=== PATIENT | female | born 1985 | race Caucasian/White ===

== ENCOUNTER 2019-02-05 05:46 | Observation (INO) ==
--- NOTE | 2019-01-28 13:32 | PAT Medication Instructions ---
Medication Instructions Date of Service January 28, 2019 Home Medications Gabapentin 1 dose PO ibuprofen 600 mg PO UD PRN meloxicam [Mobic] 7.5 mg PO DAILY Continue as directed Gabapentin 1 dose PO ASK your surgeon for instructions ibuprofen 600 mg PO UD PRN meloxicam [Mobic] 7.5 mg PO DAILY Other Notes If you have any questions please call us at [phone] or [phone] or [phone] or [phone]
--- NOTE | 2019-01-29 08:41 | Anesthesiology Consultation ---
Date of Service January 29, 2019 Assessment & Plan (1) Encounter for pre-operative examination: - Check test AM DOS Chart Review Chart Review: Acceptable Risk for Surgery and Patient seen in Pre Admission Te sting Teaching & Discussion Pre-Anesthesia Teaching/Discussion Notes: Instructed NPO after midnight before surgery,except medications with 15 cc of water. Medication instructions provided according to the PAT guidelines. History Surgery Operation Date: 02/05/19 13:45 Proposed Procedures p C5-C6 Anterior Cervical Discectomy and Fusion - Hamilton Fairchild DO Height/Weight Height: 5 ft 1 in Weight: 94.8 kg Allergies Allergy/AdvReac Type Severity Reaction Status Date / Time Penicillins Allergy Unknown HIVES AND Verified 01/28/19 10:22 SWELLING morphine AdvReac Unknown N/V Verified 01/28/19 10:23 Medications Home Medications Medication Instructions Recorded Confirmed Last Taken Gabapentin 1 dose PO 01/28/19 Unknown ibuprofen 600 mg PO UD PRN 01/28/19 01/28/19 01/26/19 meloxicam [Mobic] 7.5 mg PO DAILY 01/28/19 01/28/19 01/26/19 Past Medical History Medical History Cervicalgia RUE RADICULOPATHY Obesity Past Family History Family History Uncle Family history of colon cancer Past Surgical History Surgical History History of cholecystectomy History of wisdom tooth extraction Past Anesthesia History No Hx of Anesthesia Complications (EXCEPT PONV) and No Family Hx of Anesthesia Complications History of PONV Yes Motion Sickness Screening History of Motion Sickness: No STOP BANG Total 0 Social History Smoking Status: Never smoker Do You Dip or Chew Tobacco: No Hx Alcohol Use: No Hx Substance Use: No substance use type: does not use Exercise / Class Metabolic Activity II 4-5 Yardwork/Stairs/Walk up hill Review of Systems Patient denies chest pain, shortness of breath, dyspnea on exertion, cough, wheezing, palpitations. Physical Exam Vital Signs VITALS BP 137/86 P 77 TEMP 98.7 SP02 99%RA RESP 18 Patient advised to followup with PCP regarding elevated BP. PHYSICAL Mildly decreased cervical extension 2/2 cervicalgia Full TMJ range of motion. TMD 3 finger breaths Mallampati Score 1 Dentition: full dentures Lungs: clear throughout to auscultation Cardiac: regular rate and rhythm, no murmurs noted Spine: normal Carotid arteries: negative bruit Extremities: no edema Testing Electrocardiogram Date: 01/29/19 Findings: + NSR @ (83) Chest X-Ray Date: 01/29/19 Findings: + NAD Laboratory Results 01/29/19 08:50 01/29/19 08:50 Blood Type A Negative 01/29/19 08:50 Antibody Screen NEGATIVE 01/29/19 08:50 PT 9.7 Seconds (9.0-12.0) 01/29/19 08:50 INR 0.9 (0.9-1.1) 01/29/19 08:50 APTT 27.9 Seconds (21.0-31.0) 01/29/19 08:50 Urine Color Yellow 01/29/19 08:50 Urine Appearance Clear (Clear) 01/29/19 08:50 Urine pH 5.0 (4.5-7.5) 01/29/19 08:50 Ur Specific [place] 1.013 (1.000-1.030) 01/29/19 08:50 Urine Protein Negative (Negative) 01/29/19 08:50 Urine Glucose (UA) Negative (Negative) 01/29/19 08:50 Urine Ketones Negative (Negative) 01/29/19 08:50 Urine Nitrite Negative (Negative) 01/29/19 08:50 Ur Leukocyte Esterase Negative (Negative) 01/29/19 08:50
--- NOTE | 2019-01-29 09:13 | XRay Report ---
XR chest Pre-admission PA/Lat CLINICAL HISTORY: pat preoperative evaluation COMPARISON STUDY: No previous studies for comparison. FINDINGS: The bones soft tissues and hemidiaphragms are normal. The cardiomediastinal silhouette is n ormal. The lungs are clear. The pulmonary vasculature is normal. IMPRESSION: Negative chest. The above report was generated using voice recognition software. It may contain grammatical, syntax or spelling errors. Electronically signed by: Jose C Watters M.D. 01/29/2019 9:11 AM
[2019-01-29 10:50] LABS: Basophils # (auto) 0.03 K/uL (0-0.2); Basophils % (auto) 0.4 %; Eosinophils # (auto) 0.18 K/uL (0-0.5); Eosinophils % (auto) 2.3 %; Hematocrit (blood only) 38.2 % (37-47); Hemoglobin 12.8 g/dL (12.0-16.0); Immature Granulocytes # (auto) 0.01 K/uL (0.00-0.02); Immature Granulocytes % (auto) 0.1 %; Lymphocytes # (auto) 1.85 K/uL (1.2-3.4); Lymphocytes % (auto) 23.7 %; Mean Corpuscular Hgb Conc 33.5 g/dL (32-36); Mean Corpuscular Volume 84.3 fL (80-100); Mean Platelet Volume 10.9 fL (7.4-10.4); Monocytes # (auto) 0.52 K/uL (0.11-0.59); Monocytes % (auto) 6.6 %; Neutrophils # (auto) 5.23 K/uL (1.4-6.5); Neutrophils % (auto) 66.9 %; Platelet Count 295 K/uL (130-400); RDW Coefficient of Variation 13.2 % (11.5-14.5); RDW Standard Deviation 40.2 fL (36.4-46.3); Red Blood Count 4.53 M/uL (4.2-5.4); White Blood Count 7.82 K/uL (4.8-10.8)
[2019-01-29 10:53] LABS: Appearance Urine Clear (Clear); Bilirubin Urine Negative (Negative); Blood Urine Negative (Negative); Color Urine Yellow; Glucose Urine UA Negative (Negative); Ketones Urine Negative (Negative); Leukocyte Esterase Urine Negative (Negative); Nitrite Urine Negative (Negative); Protein Urine Negative (Negative); Specific Gravity Urine 1.013 (1.000-1.030); Urobilinogen Urine Negative (Negative)
[2019-01-29 11:00] LABS: BUN Creatinine Ratio 14.8 (10-20); Calcium 9.3 mg/dl (8.5-10.1); Creatinine Clr Calc Pharmacy 100.7 ml/min; Est GFR (African American) 107.5; Est GFR (Non-African American) 92.7; Potassium 4.3 mmol/L (3.5-5.1)
[2019-01-29 11:01] LABS: INR 0.9 (0.9-1.1); Partial Thromboplastin Time 27.9 Seconds (21.0-31.0); Prothrombin Time 9.7 Seconds (9.0-12.0)
[2019-02-05] MEDS ORDERED: LR 15ML/HR IV SCH (06:00)
[2019-02-05] MEDS ORDERED: CLINDAMYCIN 600 MG/54 ML BAG IV SCH (06:00)
[2019-02-05] MEDS ORDERED: GABAPENTIN 300 MG x 3 PO SCH (06:00)
[2019-02-05] MEDS ORDERED: CeleBREX 200 MG CAP PO SCH (06:00)
[2019-02-05] MEDS ORDERED: ACETAMINOPHEN 500 MG TAB PO SCH (06:00)
[2019-02-05] MEDS ORDERED: MIDAZOLAM HCL 1 MG/ML 2ML VIAL ONE (06:30)
[2019-02-05] MEDS ORDERED: fentaNYL citrate 100 MCG/2 ML VIAL ONE ×3 (06:30→08:39)
[2019-02-05] MEDS ORDERED: BACITRACIN INJ 50,000 UNIT VIAL ONE (06:53)
[2019-02-05] MEDS ORDERED: SCOPOLAMINE 1.5 MG TDSY ONE ×2 (07:23→09:46)
--- NOTE | 2019-02-05 07:32 | History & Physical Bridge Note ---
Date of Service February 05, 2019 History & Physical Bridge Note I have examined the patient, reviewed the History & Physical and in the interval since the performance of the History & Physical I have noted the following changes of clinical significance: no changes noted
[2019-02-05] MEDS ORDERED: fentaNYL citrate 100 MCG/2 ML VIAL IV PRN (07:33)
[2019-02-05] MEDS ORDERED: MEPERIDINE HCL 25 MG/ML CARP IV PRN (07:33)
[2019-02-05] MEDS ORDERED: PROMETHAZINE HCL 12.5 MG in SODIUM CHLORIDE 0.9% 50 ML IV PRN (07:33)
[2019-02-05] MEDS ORDERED: ONDANSETRON INJ 2 MG/ML 2 ML VIAL IV PRN (07:33)
[2019-02-05] MEDS ORDERED: LABETALOL HCL IV 5 MG/ML 20ML IV PRN (07:33)
[2019-02-05] MEDS ORDERED: PHENYLEPHRINE 100MCG/ML 5ML SYR IV PRN (07:33)
[2019-02-05] MEDS ORDERED: ATROPINE SULFATE 0.1 MG/ML 10ML SYR IV PRN (07:33)
[2019-02-05] MEDS ORDERED: HYDROmorphone INJ 1 MG/ML SYRINGE IV PRN (07:33)
[2019-02-05] MEDS ORDERED: ePHEDrine sulfate 50 MG/ML AMP IV PRN (07:33)
--- NOTE | 2019-02-05 07:33 | History & Physical Report ---
Date of Service February 05, 2019 Assessment & Plan (1) Cervical stenosis of spinal canal: Anterior cervical discectomy and fusion C5-6 Present on Admission?: Yes History of Present Illness Chief Complaint: Neck and arm pain Primary Care Provider: Delfina Patten DO This is a 34-year-old female presents with chronic persistent neck and arm pain. After failing extensive course of nonoperative care she is here for surgical intervention. Allergies Allergy/AdvReac Type Severity Reaction Status Date / Time Penicillins Allergy Unknown HIVES AND Verified 02/05/19 06:13 SWELLING morphine AdvReac Unknown N/V Verified 02/05/19 06:13 Home Medications Home Medications Medication Instructions Recorded Confirmed Type Gabapentin 1 dose PO 01/28/19 History ibuprofen 600 mg PO UD PRN 01/28/19 01/28/19 History meloxicam [Mobic] 7.5 mg PO DAILY 01/28/19 01/28/19 History Past Med/Surg History Family History Uncle Family history of colon cancer Social History Preferred Language: Colombian Communication Ability: Effective Stockroom Supervisor Required: No Beliefs That Will Affect Care: None Current Living Situation: Family Other Information That Helps Us Care for You: No Feels Safe at Home: Yes Smoking Status: Never smoker Hx Alcohol Use: No Hx Substance Use: No Physical Exam Vital Signs (Past 24 Hours): Last Vital Signs Temp 36.8 C 02/05/19 06:29 Pulse 97 H 02/05/19 06:29 Resp 18 02/05/19 06:29 BP 135/97 02/05/19 06:29 Pulse Ox 97 02/05/19 06:29
[2019-02-05] MEDS ORDERED: SCOPOLAMINE 1.5 MG TDSY TD ONE (07:36)
[2019-02-05] MEDS ORDERED: HYDROmorphone INJ 2 MG/ML SYR/VIAL ONE (07:53)
[2019-02-05] MEDS ORDERED: ONDANSETRON INJ 2 MG/ML 2 ML VIAL ONE (07:54)
[2019-02-05] MEDS ORDERED: PROPOFOL IV EMULSION 10 MG/ML 20 ML VIAL IV ONE (07:54)
[2019-02-05] MEDS ORDERED: LIDOCAINE HCL 2% 2 ML VIAL/AMP(20MG/ML) INFIL ONE (07:54)
[2019-02-05] MEDS ORDERED: GLYCOPYRROLATE 0.2 MG/ML VIAL ONE (07:54)
[2019-02-05] MEDS ORDERED: DEXAMETHASONE SOD INJ 4 MG/ML VIAL ONE (07:54)
[2019-02-05] MEDS ORDERED: raNITIdine HCl 25 MG/ML VIAL ONE (07:54)
[2019-02-05] MEDS ORDERED: NEOSTIGMINE METHYLSULFATE 1 MG/ML 10ML VIAL ONE (07:54)
[2019-02-05] MEDS ORDERED: METOCLOPRAMIDE HCL INJ 5 MG/ML 2 ML VIAL ONE ×2 (07:54→08:40)
[2019-02-05] MEDS ORDERED: ROCURONIUM BROMIDE 10 MG/ML 5 ML VIAL ONE (07:54)
[2019-02-05] MEDS ORDERED: CHECK SCOPOLAMINE PATCH PLACEMENT SCH (08:00)
[2019-02-05] MEDS ORDERED: FLOSEAL HEMOSTATIC MATRIX 10ML TOP ONE (08:34)
[2019-02-05] MEDS ORDERED: LARYING-O-JET KIT (LTA) ONE (08:43)
[2019-02-05] MEDS ORDERED: ESMOLOL HCL INJ 10 MG/ML 10ML VIAL IV ONE (08:43)
--- NOTE | 2019-02-05 08:57 | Operative Report ---
Post Operative Report Pre & Post Diagnosis Operation Date: 02/05/19 07:45 Pre-Op Diagnosis: Herniated was pulposis C5-6 with radiculopathy Post-Op Diagnosis: Same Procedure Operation Date: 02/05/19 07:45 Actual Procedures #1 anterior cervical discectomy bilateral foraminotomies C5-6. #2 anterior cervical arthrodesis C5-6. #3 placement of cortical allograft 7 mm in height filled with DBM C5-6. #4 application roberts plate and screws across C5-6. Surgeon Hamilton Fairchild, Registered Dietetic Technician Pamela Beach Estimated Blood Loss 10 Findings Consistent with Post-Op Diagnosis Specimens None Description of Procedure Patient was met with preoperatively case discussed all questions addressed. After informed consent obtained patient was taken to the operative suite underwent intubation and placed in supine position Faizan table and [place] headholder. All bony prominences well-padded eyes inspected to ensure no external pressure placed upon but this point the anterior cervical spine was prepped and draped in normal sterile fashion. The assistance of fluoroscopy identified the C5-6 disc space and a transverse incision was placed along the right anterior aspect of the cervical spine aligns region. Sharp dissection with the assistance of bipolar cautery was performed down to and exposing the anterior cervical spine. I verified my position with fluoroscopy. Then performed a complete discectomy of C5-6 up to the uncovertebral joints bilaterally. [place] distracting pins were utilized to assist in visualization. Removed all posterior fibers and identified a massive herniated disc extending out to the right neural foramen. This was removed in its entirety. Endplates then burred to subcortical bleeding bone and a 7 mm cortical allograft filled with DBM tamped in position. Distraction apparatus removed and a roberts plate and screws applied with the assistance of fluoroscopy. Incision was then copious irrigated explored to ensure no damage to surrounding structures remaining bleeding. 10 round JODEE drain inserted. Incision was then closed with 1 Vicryl fascia 2-0 Vicryl subtenons seen for Monocryl for final skin closure. Steri-Strip sterile dressing placed. Patient will continue to PACU stable disc. Please note Pamela Beach present throughout the entire procedure involved in patient positioning complex portions of the surgery and final skin closure. I attest to the content of the Intraoperative Record and any orders documented therein. Any exceptions are noted below.
--- NOTE | 2019-02-05 09:49 | Fluoroscopy Report ---
FL cervical 2-3V CLINICAL HISTORY: C5-C6 ACDF COMPARISON STUDY: None FLUOROSCOPY TIME: 10 seconds. FLUOROSCOPIC IMAGES: 2 FINDINGS: Exact localization is difficult given partial visualization of the cervical spine. These im ages demonstrate a 2 level anterior discectomy and fusion, likely at the C5-C6 level. Hardware is int act. IMPRESSION: Fluoroscopic images demonstrating a 2 level anterior discectomy and fusion within the ce rvical spine. Electronically signed by: Lm Berry M.D. 02/05/2019 9:47 AM
[2019-02-05] MEDS ORDERED: METOPROLOL TARTRATE 1 MG/ML VIAL IV ONE (10:12)
--- NOTE | 2019-02-05 10:19 | Anesthesiology Progress Note ---
Date of Service February 05, 2019 Anesthesia Post Procedure Vital Signs Vital Signs: Temp Pulse Pulse Resp BP Pulse Ox 02/05/19 10:00 74 16 120/75 100 02/05/19 09:50 72 13 122/79 100 02/05/19 09:40 68 16 126/69 100 02/05/19 09:30 71 19 123/78 100 02/05/19 09:20 76 14 123/74 100 02/05/19 09:10 75 16 123/71 99 02/05/19 09:02 36.8 C 77 14 129/72 100 02/05/19 06:29 36.8 C 97 H 18 135/97 97 Pain Intensity Medial Neck: Pain Intensity: 3 Notes Mental Status: alert / awake / arousable Patient Amnestic to Procedure: Yes Nausea / Vomiting: adequately controlled Pain: adequately controlled Airway Patency, RR, SpO2: stable & adequate BP & HR: stable & adequate Hydration State: stable & adequate Anesthetic Complications: no major complications apparent and Pt Satisfied with anesthetic care Notes: The patient is awake and doing well. She has no neck swelling.
[2019-02-05] MEDS ORDERED: RACEPINEPHRINE 2.25% NEBU SOLN 0.5 ML VIAL INH PRN (10:46)
[2019-02-05] MEDS ORDERED: MAGNESIUM HYDROXIDE SUSP 30 ML UDC PO PRN (10:46)
[2019-02-05] MEDS ORDERED: LORazepam 0.5 MG/1 ML VIAL IV PRN (10:46)
[2019-02-05] MEDS ORDERED: DEXAMETHASONE SOD PHOSPHATE 8 MG in SYRINGE 0 ML IV PRN (10:46)
[2019-02-05] MEDS ORDERED: NALOXONE HCL 0.4 MG/1 ML VIAL/CARP IV PRN (10:46)
[2019-02-05] MEDS ORDERED: DO NOT ADMINISTER FLU VACCINE PRN (10:46)
[2019-02-05] MEDS ORDERED: LORazepam 0.5 MG TAB PO PRN (10:46)
[2019-02-05] MEDS ORDERED: DiphenhydrAMINE HCL 50 MG/ML VIAL IV PRN (10:46)
[2019-02-05] MEDS ORDERED: DO NOT ADMINISTER PNEUMOCOCCAL VACCINE PRN (10:46)
[2019-02-05] MEDS ORDERED: DEXAMETHASONE SOD PHOSPHATE 6 MG in SYRINGE 0 ML IV SCH (10:46)
[2019-02-05] MEDS ORDERED: PROMETHAZINE HCL 12.5 MG in SODIUM CHLORIDE 0.9% 50 ML IV STA (10:59)
[2019-02-05] MEDS: LACTATED RINGER'S 1,000 ML IV SCH (11:38)
[2019-02-05] MEDS: HYDROmorphone INJ 0.5 MG/0.5 ML SYR IV PRN ×4 (12:51→23:44)
[2019-02-05] MEDS: CLINDAMYCIN 600 MG in DEXTROSE 5% 50 ML IV SCH ×2 (13:30→22:16)
[2019-02-05] MEDS: ONDANSETRON INJ 2 MG/ML 2 ML VIAL IV PRN ×2 (15:47→21:53)
[2019-02-05] MEDS: DEXAMETHASONE SOD PHOSPHATE 6 MG in SYRINGE 0 ML IV SCH ×2 (16:40→23:43)
[2019-02-05] MEDS: DOCUSATE SODIUM 100 MG CAP PO SCH (20:41)
[2019-02-06] MEDS: LACTATED RINGER'S 1,000 ML IV SCH (02:47)
[2019-02-06] MEDS: ONDANSETRON INJ 2 MG/ML 2 ML VIAL IV PRN ×2 (04:15→11:17)
[2019-02-06] MEDS: CLINDAMYCIN 600 MG in DEXTROSE 5% 50 ML IV SCH (05:32)
[2019-02-06] MEDS: OXYCODONE HCL IR 5 MG TAB (IMMEDIATE RELEASE) PO PRN ×2 (05:41→11:16)
[2019-02-06] MEDS: DOCUSATE SODIUM 100 MG CAP PO SCH (07:34)
[2019-02-06] MEDS: DEXAMETHASONE SOD PHOSPHATE 6 MG in SYRINGE 0 ML IV SCH (07:34)
[2019-02-06] MEDS: HYDROmorphone INJ 0.5 MG/0.5 ML SYR IV PRN (07:37)
--- NOTE | 2019-02-06 07:50 | Anesthesiology Progress Note ---
Date of Service February 06, 2019 Anesthesia Post Procedure Vital Signs Vital Signs: Temp Pulse Pulse Pulse Resp BP Pulse Ox 02/06/19 06:56 77 16 97 02/06/19 05:34 90 16 101/58 L 98 02/06/19 03:40 36.7 C 93 H 20 113/71 98 02/06/19 03:20 111 H 16 99 02/06/19 01:30 36.7 C 82 18 108/68 98 02/05/19 23:25 77 14 96 02/05/19 23:16 36.8 C 108 H 16 116/72 97 02/05/19 22:20 37.2 C 87 16 125/74 96 02/05/19 20:04 37.1 C 82 16 120/75 98 02/05/19 19:54 55 L 16 95 02/05/19 18:13 36.5 C 95 H 16 128/80 97 02/05/19 15:35 36.6 C 98 H 18 122/73 98 02/05/19 14:49 72 14 98 02/05/19 13:24 70 18 113/74 99 02/05/19 12:26 73 18 107/69 100 02/05/19 11:45 78 16 100 02/05/19 11:27 77 18 116/76 100 02/05/19 11:12 78 18 113/74 99 02/05/19 10:30 36.5 C 79 16 125/80 100 02/05/19 10:00 74 16 120/75 100 02/05/19 09:50 72 13 122/79 100 02/05/19 09:40 68 16 126/69 100 02/05/19 09:30 71 19 123/78 100 02/05/19 09:20 76 14 123/74 100 02/05/19 09:10 75 16 123/71 99 02/05/19 09:02 36.8 C 77 14 129/72 100 Pain Intensity Medial Neck: Pain Intensity: 5 Notes Mental Status: alert / awake / arousable and participated in evaluation Patient Amnestic to Procedure: Yes Nausea / Vomiting: adequately controlled Pain: adequately controlled Airway Patency, RR, SpO2: stable & adequate BP & HR: stable & adequate Hydration State: stable & adequate Anesthetic Complications: no major complications apparent and Pt Satisfied with anesthetic care
--- NOTE | 2019-02-06 08:19 | Discharge Summary ---
Date of Service February 06, 2019 Admission HPI Per Admitting Provider This is a 34-year-old female presents with chronic persistent neck and arm pain. After failing extensive course of nonoperative care she is here for surgical intervention. Principal Diagnosis Herniated was pulposis C5-6 Discharge Data Allergies Allergy/AdvReac Type Severity Reaction Status Date / Time Penicillins Allergy Unknown HIVES AND Verified 02/05/19 06:13 SWELLING morphine AdvReac Unknown N/V Verified 02/05/19 06:13 Procedures Performed Operation Date: 02/05/19 07:45 Actual Procedures p C5-C6 Anterior Cervical Discectomy and Fusion(Not Applicable) - Hamilton Fairchild DO Ordered Studies 02/05/19 07:45 FL cervical 2-3V Routine FL fluoroscopy <1hr Routine Hospital Course (1) Cervical stenosis of spinal canal: Patient is status post ACDF. Postop day #1 she is swallowing well pain well controlled arm symptoms markedly improved. Subsequent discharge home. Discharge orders and instructions found in the chart for further review. Total Time Total Time Spent Total Time Spent (In Minutes): Not applicable Discharge Plan Discharge Items Patient Disposition: Home - Self-Care Reason For Visit: Spinal Stenosis, Cervical Region Discharge Diagnosis: cervical disk herniation Discharge Goals: Decrease discomfort Activity: Per 'Additional Instructions' section Non-emergency contact: Primary Care Provider Call non-emergency contact if: you have any medication questions Follow-up/Referrals: Delfina Patten DO [Primary Care Provider] - Diet: Regular Addtl Provider Instructions: ACTIVITY RECOMMENDATIONS: SELF CARE INSTRUCTIONS AFTER CERVICAL FUSIONS 1. No smoking. Smoking drastically decreases the chance of a solid fusion. 2. No bending, lifting more than 5 pounds, or twisting (roll like a log when turning in bed). 3. You may shower 3 days after surgery. Thoroughly dry wound. Do not soak in the tub. 4. Cervical collar: Must be worn at all times including sleeping. You may remove the brace only to bath, eat and if you are sitting in a recliner. 5. Please walk as much as you can for exercise. Gradually increase the distance that you walk as your endurance increases. SPECIAL CARE INSTRUCTIONS: VERY IMPORTANT TO READ AND REVIEW A. Do not take any anti-inflammatory medications (i.e. Indocin, Advil, Aspirin, Naprosyn, Aleve, Motrin, etc.) as these may inhibit the chance of a solid fusion. Tylenol is okay to take. B. Your surgical incision has been closed with a cosmetic suture under the skin that will dissolve in about 6 weeks. In 14 days, you can use a pair of clean scissors and cut the suture that is left outside of the skin at the ends of your incision. C. Complications are uncommon, but please contact us if you have any signs or symptoms of: 1. wound infection (fever higher than 102.5 degrees F, redness, separation of wound, drainage, or increasing pain from the incision) 2. blood clots in legs (pain, swelling, redness and warmth in legs) 3. urinary tract infection (fever higher than 102.5 degrees, burning upon urination or increased frequency of urination) 4. nerve problems (inability to walk on your toes or heels, numbness, loss of bowel or bladder control) 5. any other symptoms that concern you. D. Please call the office at if you have any concerns or questions about your operation or recovery. MANAGING PAIN AFTER SPINAL SURGERY 1. Narcotic medication is intended for short-term use and will be provided for surgical pain. Surgical pain usually lasts for a period of 4-6 weeks. Narcotic medication includes Percocet, Vicodin, Darvocet, Tylenol #3 or Lortab. 2. Longer-term pain is more appropriately treated with non-narcotic medication such as Tylenol ES. 3. Muscle spasm is not appropriately treated with narcotics. Muscle relaxers such as Soma, Flexeril or Skelaxin can be used along with Tylenol ES. 4. Remember that we all live with some "aches and pains". This is not unusual or uncommon after an injury or as we get older. 5. We will provide appropriate medication within the normal guidelines of their prescribed use. We will also be very cautious and aware of potential abuse and extended duration of patients' medication needs. 6. Please allow 2-3 days to process refills. Prescriptions will not be mailed but must be picked up at the office. FOLLOW UP VISIT: Keep your scheduled follow-up appointment. Any questions, please call the office at . Prescriptions: New oxycodone 5 mg Tablet 5 mg PO Q4H PRN (Reason: Pain, Severe) Qty: 20 RF: 0 Continued Gabapentin capsule 1 dose PO RF: 0 Discontinued meloxicam [Mobic] 7.5 mg Tablet 7.5 mg PO DAILY RF: 0 ibuprofen 600 mg Tablet 600 mg PO UD PRN (Reason: Pain) RF: 0 Stand-Alone Forms: [facility] Discharge Orders: Discharge Order (Routine); Ordered 02/06/19 Ordered By: Hamilton Fairchild Admission Data Admit Date/Time: 02/05/19 10:36 Attending Provider: Hamilton Fairchild Admit Provider: Hamilton Fairchild Primary Care Provider: Delfina Pattne Service: Surgical Services
[2019-02-07] MEDS ORDERED: BISACODYL 5 MG TABEC PO PRN (09:00)
== END 2019-02-06 12:00 | disposition home or self-care (01) ==
LOC: ASU 05:46 → 3E 05:46